=== PATIENT | male | born 1960 | race Caucasian/White ===

== ENCOUNTER 2017-07-24 11:43 | Emergency (ER) | payer SELFPAY ==
[2017-07-24 11:57] VITALS: TEMP 99.1; O2SAT 95
--- NOTE | 2017-07-24 12:08 | ED.PDOC ---
History of Present Illness - General Chief Complaint: Respiratory Problem Stated Complaint: cough Time Seen by Provider: 07/24/17 11:44 Source: patient Exam Limitations: no limitations - History of Present Illness Initial Comments: 57 yo male with 2 days of cough and burning with coug. minimally productive. mild headache and bodyaches, minimal sore throat or runny nose. no definite fever. Severity: moderate Improving Factors: nothing Worsening Factors: nothing Associated Symptoms: cough, malaise, shortness of breath - mild Allergies/Adverse Reactions: Allergies Penicillins Allergy (Verified 07/24/17 11:57) Home Medications: Ambulatory Orders Azithromycin 500 mg PO DAILY #7 tab 07/24/17 Oseltamivir Capsule [Tamiflu] 75 mg PO BID 5 Days #10 capsule 07/24/17 Review of Systems - Review of Systems Constitutional: States: malaise EENTM: States: nose congestion - mild Respiratory: States: cough, short of breath - mild Cardiology: States: no symptoms reported Gastrointestinal/Abdominal: States: no symptoms reported Genitourinary: States: no symptoms reported Musculoskeletal: States: no symptoms reported Skin: States: no symptoms reported Neurological: States: headache Endocrine: States: no symptoms reported All other Systems: No Change from Baseline Past Medical History (General) - Patient Medical History Hx Stroke: No Hx Asthma: No Hx Cardiac Disorders: No Hx Hypertension: No Surgical History: no surgical history - Vaccination History Hx Influenza Vaccination: No Hx Pneumococcal Vaccination: No - Social History Hx Tobacco Use: No Family Medical History - Family History Mother Family History: Unknown Physical Exam - Physical Exam General Appearance: Alert, Comfortable, No apparent distress Eye Exam: bilateral normal Ears, Nose, Throat: hearing grossly normal, normal pharynx, nasal congestion Neck: full range of motion, supple Respiratory: lungs clear, normal breath sounds, no respiratory distress, no accessory muscle use Cardiovascular/Chest: normal peripheral pulses, regular rate, rhythm, no edema Peripheral Pulses: radial,right: 2+, radial,left: 2+, dorsalis pedis,right: 2+, dorsalis pedis,left: 2+ Gastrointestinal/Abdominal: non tender, soft Rectal Exam: deferred Back Exam: normal inspection, no CVA tenderness Extremity: normal range of motion, non-tender, normal inspection, no pedal edema , normal capillary refill 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 viral vs bacterial. will cover with tamiflu and azithromycin. keep well hydrated. follow up with pcp before the end of the week. use aleve 2 tabs 2 times daily to help reduce symptoms . er warnings for any worsening. no smoking Departure - Departure Clinical Impression: Acute bronchitis Qualifiers: Bronchitis organism: unspecified organism Qualified Code(s): J20.9 - Acute bronchitis, unspecified Disposition: Discharge to Home or Self Care Condition: Fair Departure Forms: ED Discharge - Pt. Copy, Patient Portal Self Enrollment Instructions: DI for Acute Bronchitis Diet: regular diet Activity: increase activity as tolerated Prescriptions: Azithromycin 500 mg PO DAILY #7 tab Oseltamivir Capsule [Tamiflu] 75 mg PO BID 5 Days #10 capsule Home Medications: Ambulatory Orders Azithromycin 500 mg PO DAILY #7 tab 07/24/17 Oseltamivir Capsule [Tamiflu] 75 mg PO BID 5 Days #10 capsule 07/24/17 Additional Instructions: pt presents with a bronchitis of 2 days duration. viral vs bacterial. will cover with tamiflu and azithromycin. keep well hydrated. follow up with pcp before the end of the week. use aleve 2 tabs 2 times daily to help reduce symptoms . er warnings for any worsening. no smoking
[2017-07-24] MEDS: predniSONE 20 MG TAB PO ONE (12:29)
[2017-07-24 12:37] VITALS: BP 129/80
== END 2017-07-24 12:37 | disposition home or self-care (01) ==
LOC: ER 11:43
DX: J20.9 Acute bronchitis, unspecified (principal)